=== PATIENT | male | born 1945 | race Two or more races ===

== ENCOUNTER → 2024-06-17 09:01 | Outpatient (REF) | payer OTHER, SELFPAY | LOC: RCS 09:01 | PROVIDERS: ATTENDING PHYSICIAN Nurse Practitioner Gerontology; FAMILY PHYSICIAN Family Medicine | DX: I49.3 Ventricular premature depolarization (principal); I10 Essential (primary) hypertension | CPT/HCPCS: 93306 ==

== ENCOUNTER 2024-10-10 15:48 | Emergency (ER) | payer OTHER, SELFPAY ==
[2024-10-10 15:50] VITALS: BP 152/103
[2024-10-10 17:40] VITALS: BMI 31.5
[2024-10-10 17:41] VITALS: BP 148/111
[2024-10-10] MEDS: LOPRESSOR 5 MG IV (17:53)
[2024-10-10 18:00] VITALS: BP 134/96
[2024-10-10 18:05] LABS: % Basophils 0.6 % (0-2); % Eosinophils 3.4 % (0-6); % Immature Granulocytes 0.5 % (0-0.5); % Lymphocytes 15.2 % (20.5-51.1); % Monocytes 9.5 % (1.7-9.3); % Neutrophils 70.8 % (42.2-75.2); Absolute Basophils 0.1 10^3/uL (0-0.2); Absolute Eosinophils 0.3 10^3/uL (0-0.7); Absolute Lymphocytes 1.3 10^3/uL (1.2-3.4); Absolute Monocytes 0.8 10^3/uL (0.1-0.6); Absolute Neutrophils 5.8 10^3/uL (1.4-6.5); Hematocrit 47.2 % (39.0-52.0); Hemoglobin 16.7 g/dL (13.0-18.0); Mean Corp Hgb Conc. 35.4 g/dL (33.0-37.0); Mean Corpuscular Hgb 33.7 pg (27.0-31.0); Mean Corpuscular Volume 95.4 fL (80.0-94.0); Mean Platelet Volume 10.1 fL (7.4-10.4); Nucleated Red Blood Cells % 0 % (-); Platelet Count 228 10^3/uL (130-400); Red Blood Cell Count 4.95 10^6/uL (4.70-6.10); Red Cell Dist. Width 12.8 % (11.5-14.5); White Blood Cell Count 8.2 10^3/uL (4.8-10.8)
[2024-10-10 18:25] LABS: ALT (SGPT) 42 U/L (0-50); AST (SGOT) 47 U/L (17-59); Albumin 4.6 g/dl (3.5-5.0); Alkaline Phosphatase 70 U/L (38-126); Blood Urea Nitrogen 28 mg/dl (9-20); Calcium 9.8 mg/dl (8.4-10.2); Carbon Dioxide 21 mmol/L (22-30); Chloride 107 mmol/L (98-107); Estimated Creatinine Clearance 55 ml/min; Glucose 109 mg/dl (70-99); Magnesium 2.1 mg/dl (1.6-2.3); Potassium 4.5 mmol/L (3.5-5.1); Sodium 141 mmol/L (135-145); Total Bilirubin 2.6 mg/dl (0.2-1.3); Total Protein 7.8 g/dl (6.3-8.2); eGFR 51.77
[2024-10-10 19:00] VITALS: BP 120/97
--- NOTE | 2024-10-10 19:26 | ED.GENMED ---
History of Present Illness
General
Chief Complaint: Heart Rate Problem
Time Seen by Provider: 10/10/24 17:08
History of Present Illness
History of Present Illness:
79-year-old male presents to the emergency department for evaluation of exertional shortness of breath and fatigue that has been ongoing for the past several days. He noted his Apple Watch recorded A-fib thus prompting him to come to the emergency
department. He has no prior history of A-fib. Denies any chest pain currently, no fevers or chills.
Review of Systems
Review of Systems
Allergies reviewed?: Yes
All Other Systems: ROS reviewed and negative except as documented in HPI and ROS
Phy Exam
Physical Exam
Physical Exam:
GEN: Well appearing, NAD, WDWN
HEENT: Oral mucosa moist, no scleral icterus
Cardiac: Slightly tachycardic and irregular, no murmur
Lung: No respiratory distress, no tachypnea, lungs clear to auscultation bilaterally
MSK: No gross deformity or injuries
Skin: Good color, no pallor or jaundice, no rashes
Neuro: AO x3, moves all extremities freely
Psych: Calm, cooperative
Course
Orders/Labs/Results
Orders:
Orders
10/10/24 15:49
Electrocardiogram (*1) Urgent
Reason for Study: Palpitations
EKG- Treatment ONCE
10/10/24 17:33
Metoprolol [Lopressor] 5 mg IV NOW STA
10/10/24 17:45
Complete Blood Count/With Diff Urgent
Comprehensive Metabolic Panel Urgent
Magnesium Urgent
10/10/24 18:24
Metoprolol [Lopressor] 5 mg IV NOW STA
10/10/24 19:25
Apixaban [Eliquis] 5 mg PO NOW STA
Metoprolol [Lopressor] 25 mg PO NOW STA
Abnormal Lab Results
11/15/24
17:45
MCV 95.4 H fL
(80.0-94.0)
MCH 33.7 H pg
(27.0-31.0)
Absolute Monos (auto) 0.8 H 10^3/uL
(0.1-0.6)
Lymphocytes % 15.2 L %
(20.5-51.1)
Monocytes % 9.5 H %
(1.7-9.3)
Carbon Dioxide 21 L mmol/L
(22-30)
BUN 28 H mg/dl
(9-20)
Creatinine 1.4 H mg/dL
(0.7-1.3)
Glucose 109 H mg/dl
(70-99)
Total Bilirubin 2.6 H mg/dl
(0.2-1.3)
10/10/24 17:45
10/10/24 17:45
Vital Signs
Initial and Last Documented VS:
Initial Vital Signs
Temp Pulse Resp BP Pulse Ox
98.5 F 69 16 152/103 97
10/10/24 15:50 10/10/24 15:50 10/10/24 15:50 10/10/24 15:50 10/10/24 15:50
Last Documented Vital Signs
Temp Pulse Resp BP Pulse Ox
98.5 F 92 14 120/97 97
10/10/24 15:50 10/10/24 19:39 10/10/24 19:30 10/10/24 19:39 10/10/24 15:50
MDM/Problems Addressed
MDM/Problems Addressed:
Patient is found to be in new onset A-fib. 1 dose of IV metoprolol provided adequate rate control. He is not a candidate for cardioversion due to unclear onset time. Has had prior outpatient labs showing normal thyroid function thus do not feel
any indication to recheck this today. Will start the patient on Eliquis and increase his home metoprolol, he has planned cardiology follow-up in October
*Critical Care Note
Total Time (30-74mins, 75-104mins- exclusive of procedures): Not Applicable
ED Attending Note
-
Portions of this chart may have been created with voice recognition software.� Occasional wrong word or��sound alike� substitutions may have occurred due to the inherent limitations of voice recognition software.
Discharge Plan
Departure
Patient Disposition: Home (Routine Discharge)
Date of Disposition: 10/10/24
Time of Disposition: 19:26
Patient with high blood pressure during this ER visit?: No
Discharge Problem:
Atrial fibrillation, new onset
Instructions: Atrial Fibrillation (DC), Taking oral medicines for blood clots
Prescriptions:
New
Eliquis 5 mg tablet
5 mg PO BID Qty: 60 0RF
metoprolol succinate 25 mg tablet extended release 24 hr
25 mg PO BID Qty: 60 0RF
Discontinued
metoprolol succinate 25 mg Capsule,Sprinkle,Er 24hr
12.5 mg PO QPM
No Action
multivitamin Tablet
1 tab PO DAILY
amlodipine 5 mg Tablet
5 mg PO HS
dicyclomine 20 mg Tablet
20 mg PO PRN PRN (Reason: IBS)
losartan 100 mg Tablet
100 mg PO QPM
finasteride 5 mg Tablet
5 mg PO QPM
hydrochlorothiazide 12.5 mg Tablet
12.5 mg PO DAILY
Nicotinamide 1 TABLEt tablet
1 tab PO DAILY
Red Wine Extract 85 MG
85 mg PO DAILY
ashwagandha extract 400 MG tablet
400 mg PO DAILY
creatine monohydrate 2,500 MG tablet
5,000 mg PO PRN PRN (Reason: post workout)
vitamin D3-vitamin K2
1 tab PO DAILY
Magnesium + Inosine
1 cap PO DAILY
Metamucil
2 cap PO DAILY
Referrals:
Krakowski,Andrea Jose, MD [Active] -
Sarah Beth Cabezas MD [Family Provider] -
Interventions
Interventions:
*Risk Screen - Suicide Last Done: 10/10/24 15:50
*General Assessment Last Done: 10/10/24 15:50
*Neglect/Abuse Screening Last Done: 10/10/24 17:40
ED- Fall Risk Assessment Last Done: 10/10/24 17:40
*ED COVID-19 Vaccine History Last Done: 10/10/24 15:50
*Nursing Disposition Last Done: 10/10/24 19:50
ED- Cardiac Assessment Last Done: 10/10/24 17:40
ED- Pulmonary Assessment Last Done: 10/10/24 17:40
Discharge Date and Time
Discharge Date/Time: 10/10/24 19:50
Print Language: CITIZ[place]
[2024-10-10] MEDS: LOPRESSOR 25 MG PO (19:39)
[2024-10-10] MEDS: ELIQUIS 5 MG PO (19:39)
== END 2024-10-10 19:50 | disposition home or self-care (01) ==
LOC: EMR 15:48
PROVIDERS: Physician Assistant; EMERGENCY PHYSICIAN Emergency Medicine; FAMILY PHYSICIAN Family Medicine
DX: I48.91 Unspecified atrial fibrillation (principal); Z79.01 Long term (current) use of anticoagulants
CPT/HCPCS: 99283; 80053; 83735; 85025; 93005

== ENCOUNTER 2024-12-11 14:58 | Inpatient (IN) | payer OTHER, SELFPAY ==
[2024-12-11] VITALS (10 sets, daily range): BP systolic 136–170; BP diastolic 71–93; BMI 30.1
--- NOTE | 2024-12-11 13:38 | W.PN.CARDCBS ---
Today's Communication / Plan
-
NSTEMI, transferred for [facility] today
trend troponin to peak
Impression / Plan
-
This is a summary, please see scanned H&P
Primary care physician: Sarah Beth Cabeazs MD
Primary nurse advisor: Andrea Shine MD
79 year old male history of HTN, HLD, PAF and Bladder CA. He presented to [facility] ED after awakening around 1 AM with anterior chest tightness with associated dyspnea and diaphoresis. He describes his chest discomfort as tightness, 'like it was muscles
pulling on the outside of my body'. He reports no precipitating factors, but describes deep breathing and chest massage as relieving factors. He denies radiating symptoms. He took 2 tums without relief and was given 3 sl nitro and ASA with relief
upon arrival to the ED. BP 166/108. EKG showed NSR with marked inferior ST depressions and lateral/inferior ST depressions. IV Heparin gtt was started. Repeat ECG showed NSR with inferior infarct. CXR showed hazy opacity in the L lung zone. Cr 1.47
Trp 20, 142, 303 with CPK 143. He remains pain free since receiving Nitroglycerin. Echo with NL EF and LAD WMA. He is transferred today for [facility].
Impression:
NSTEMI
HTN
Hyperlipidemia
PAF not on OAC (pt choice)
Bladder cancer
GERD
Plan:
Transferred today for [facility] for NSTEMI
Currently CP free, continue heparin drip until cath
ECG suggested inferior ST depression with subtle [address]-T wave reciprocal changes anteriorly
Echo with LAD WMA
trend troponin to peak, GV 20 ->> 142 ->> 303
Received ASA 325 mg x1 @ 02:10 today
Continue ASA 81 mg daily + Atorva 40
Continue home Metop Succinate + Amlodipine for now
[id number] =3, pt prefers not to be on OAC
continue to monitor on tele
12/11/24 ECHO -
1. Preserved left ventricular systolic function.
2. Left ventricular ejection fraction, by visual estimation, is 50 to 55%.
3. Mid and apical anterior septum, apical anterior segment, and apex are abnormal.
4. Indeterminate LV diastolic function.
5. Right atrial pressure of (3 mmHg), the estimated right ventricular systolic pressure is normal at (23.9 mmHg).
6. Normal left atrium by volume index (24.8 mL/m2) and normal right atrium by area (16.5 cm2).
7. No hemodynamically significant valvular abnormalities.
8. There is a fat pad vs. trivial pericardial effusion.
9. There are no prior studies for comparison.
Progress Note - Vacuum Kettle Cook
Subjective
Date of Service: December 11, 2024
denies cp, sob
Objective
Labs:
Laboratory Last Values
WBC 6.7 10^3/uL (4.5-11.0) 12/11/24 02:12
RBC 4.75 10^6/uL (4.20-5.40) 12/11/24 02:12
Hgb 15.6 gm/dL (13.5-16.5) 12/11/24 02:12
Hct 44.8 % (40.0-48.0) 12/11/24 02:12
MCV 94 fl (82-98) 12/11/24 02:12
RDW 13.0 % (11.0-15.0) 12/11/24 02:12
Plt Count 232 10^3/uL (150-400) 12/11/24 02:12
Neut % (Auto) 53 % (40-78) 12/11/24 02:12
Lymph % (Auto) 31 % (21-49) 12/11/24 02:12
[place] % (Auto) 11 % (0-10) H 12/11/24 02:12
Eos % (Auto) 4 % (0-4) 12/11/24 02:12
Baso % (Auto) 1 % (0-1) 12/11/24 02:12
Neut # (Auto) 3.6 10^3/uL (2.2-8.0) 12/11/24 02:12
Lymph # (Auto) 2.1 10^3/uL (1.0-4.0) 12/11/24 02:12
[place] # (Auto) 0.8 10^3/uL (0.0-1.0) 12/11/24 02:12
Eos # (Auto) 0.3 10^3/uL (0.0-0.4) 12/11/24 02:12
Baso # (Auto) 0.0 10^3/uL (0.0-0.1) 12/11/24 02:12
PT 13.2 SECONDS (11.5-14.4) 12/11/24 02:12
INR 0.99 INR 12/11/24 02:12
APTT 55 SECONDS (23-37) H 12/11/24 09:28
Sodium 139 mmol/L (136-145) 12/11/24 02:12
Potassium 4.0 mmol/L (3.5-5.1) 12/11/24 02:12
Chloride 103 mmol/L (98-107) 12/11/24 02:12
Carbon Dioxide 22.1 mmol/L (22.0-29.0) 12/11/24 02:12
Anion Gap 14 (7-16) 12/11/24 02:12
BUN 23 mg/dL (8-23) 12/11/24 02:12
Creatinine 1.47 mg/dL (0.70-1.20) H 12/11/24 02:12
GFR Calculation 49 (Over 90) L 12/11/24 02:12
BUN/Creatinine Ratio 15.3 (7.0-25.0) 12/11/24 02:12
POC Glucometer 153 mg/dL (70 - 110) H 12/11/24 02:05
Fasting Glucose 146 mg/dL (70-110) H 12/11/24 02:12
Calcium 9.3 mg/dL (8.8-10.2) 12/11/24 02:12
Total Bilirubin 1.3 mg/dL (0.1-1.2) H 12/11/24 02:12
AST 32 U/L (0-40) 12/11/24 02:12
ALT 27 U/L (0-41) 12/11/24 02:12
Alkaline Phosphatase 93 U/L (35-160) 12/11/24 02:12
Total Creatine Kinase 130 U/L (20-200) 12/11/24 09:28
CK-MB (CK-2) 5.1 ng/mL (0.0-5.0) H 12/11/24 09:28
CK-MB (CK-2) Rel Index 3.9 ng/100IU (0-2.8) H 12/11/24 09:28
Troponin T 5th Gen ng/L 303 ng/L (0-22) H* 12/11/24 09:28
Total Protein 7.6 g/dL (6.5-8.3) 12/11/24 02:12
Albumin 4.2 g/dL (3.5-5.2) 12/11/24 02:12
Globulin 3.4 g/dL (2.3-3.5) 12/11/24 02:12
Albumin/Globulin Ratio 1.2 (1.1-1.7) 12/11/24 02:12
Influenza A (PCR) Negative (NEGATIVE) 12/11/24 06:00
Influenza B (RT-PCR) Negative (NEGATIVE) 12/11/24 06:00
POC RSV (ABBE) Negative (NEGATIVE) 12/11/24 06:00
SARS-CoV-2 (PCR) Negative (NEGATIVE) 12/11/24 06:00
Physical Exam
Physical Exam
NAD< AOX3
S1, S2, RRR
CTAB< non labored, no wheeze
SNTND bsx4
No LE edema
[2024-12-11 17:08] LABS: Troponin I 0.975 ng/ml
--- NOTE | 2024-12-11 17:21 | PTCARENOTE ---
Received pt from wood preserving plant laborer w/ right radial band intact. VSS. Pt denies chest discomfort. MD in pt's room at this time.
--- NOTE | 2024-12-11 17:26 | ITS.CL.PN ---
Residential Nurse - Procedure Note
Procedure
Procedure Note:
CARDIAC CATHETERIZATION REPORT
Date of Procedure: 12/11/2024
Referring: Dr. Apolinar Romo MD
Indication: NSTEMI
PROCEDURE(S)
1. left heart catheterization
2. coronary angiography
3. extremity angiography, unilateral, radial artery
4. ultrasound guided vascular access, radial artery
5. moderate sedation, 35 minutes
ACCESS: 6F right radial artery (closure: radial band)
CATHETERS
1. 6F JR4
2. 6F JL3.5
MODERATE SEDATION: 35 minutes of moderate sedation was utilized. An independent emergency medical service manager was present to assist with and help manage the patient's level of consciousness and physiologic status.
ULTRASOUND GUIDED VASCULAR ACCESS (right radial artery): Ultrasound was utilized for vascular access. The vessel was visualized under ultrasound and noted to be patent. An image of the vessel was stored permanently in the patient's medical record.
Under direct ultrasound guidance, vascular access was obtained using a modified Seldinger technique and a 6 [place] sheath was placed.
HEMODYNAMIC DATA
LV 141/10 (EDP 15) mmHg
AO 143/79 (mean 105) mmHg
CORONARY ANGIOGRAPHY
Dominance: right
LM: large vessel with mild disease
LAD: Large vessel giving rise to a moderate caliber D1 and large caliber D2. There is a severe 90% stenosis spanning the takeoff of D2. There is also severe disease at the D1 ostium and the second focal stenosis in the proximal D1.
LCx: Moderate caliber vessel giving rise to a small OM1 large branching OM2. There is mild nonobstructive disease.
RCA: Large vessel giving rise to a large RPDA and very large right posterolateral branch. There is mild nonobstructive disease.
RADIATION: dose 295 mGy; DAP 25.2 Gy*cm2; fluoroscopy time 4.4 min
CONCLUSIONS
1. Single-vessel obstructive coronary artery disease with high-grade bifurcation stenosis of the LAD and large diagonal branch.
2. Mildly elevated LV filling pressure and no aortic stenosis.
RECOMMENDATIONS
1. expectant management after cardiac catheterization via right radial approach
2. The patient was chest pain free at the time of cath and was taken off the table to discuss revascularization options. Given that this is relatively low Syntax disease in a nondiabetic patient with normal EF and no significant valvular disease, I
believe percutaneous revascularization is appropriate. This was discussed with the patient and he is comfortable proceeding with PCI tomorrow.
3. Please keep NPO after 6 AM (okay for a small early breakfast).
4. Please load patient with 180 mg ticagrelor tonight and continue 90 mg ticagrelor BID afterwards.
5. Continue
6. High intensity statin
Copy to: Dr. Andrea Shine MD (grain roaster); Dr. Apolinar Romo MD (transferring grain roaster), Dr. Sarah Beth Cabezas MD (PCP)
Signed: Emery Gauthier MD, PhD
[2024-12-11] MEDS: NSS 1000 IV (18:06)
[2024-12-11] MEDS: LIPITOR 40 MG PO (18:17)
[2024-12-11 18:28] LABS: APTT 163.3 Sec (23.4-35.0)
[2024-12-11] MEDS: HEPARIN 25000 UNITS/250 ML IV (19:58)
[2024-12-11] MEDS: TOPROL XL 25 MG PO (20:03)
[2024-12-11] MEDS: BRILINTA 180 MG PO (20:03)
[2024-12-12] VITALS (15 sets, daily range): BP systolic 136–168; BP diastolic 76–90
[2024-12-12] LABS: Troponin I 0.599 ng/ml
[2024-12-12 02:54] LABS: Hematocrit 39.6 % (39.0-52.0); Hemoglobin 14.2 g/dL (13.0-18.0); Mean Corp Hgb Conc. 35.9 g/dL (33.0-37.0); Mean Corpuscular Hgb 33.3 pg (27.0-31.0); Mean Corpuscular Volume 92.7 fL (80.0-94.0); Mean Platelet Volume 10.2 fL (7.4-10.4); Platelet Count 194 10^3/uL (130-400); Red Blood Cell Count 4.27 10^6/uL (4.70-6.10); White Blood Cell Count 6.8 10^3/uL (4.8-10.8)
[2024-12-12 03:07] LABS: APTT 43.6 Sec (23.4-35.0); Blood Urea Nitrogen 21 mg/dl (9-20); Calcium 8.9 mg/dl (8.4-10.2); Carbon Dioxide 19 mmol/L (22-30); Chloride 107 mmol/L (98-107); Estimated Creatinine Clearance 75 ml/min; Glucose 103 mg/dl (70-99); HDL Cholesterol 74 mg/dl; LDL Cholesterol, Calculated 66 mg/dl; Potassium 3.9 mmol/L (3.5-5.1); Sodium 136 mmol/L (135-145); Total Cholesterol 164 mg/dl (50-199); Triglyceride 121 mg/dl (10-149); Very Low Density Lipoprotein 24 mg/dl (0-30); eGFR > 60.00
--- NOTE | 2024-12-12 04:05 | PTCARENOTE ---
patient rested comfortably overnight. denies any cp/sob. SB on tele 50s. bp stable. heparin gtt infusing per protocol. R radial site intact/+pulse. ambulating in the room independently. NPO for cardiac cath today. educated patient to inform RN with
any changes. call elias within reach. makes needs known.
[2024-12-12] MEDS: PROTONIX 40 MG PO (07:57)
[2024-12-12] MEDS: TOPROL XL 25 MG PO ×2 (07:57→19:38)
[2024-12-12] MEDS: LOW STRENGTH ASPIRIN 81 MG PO (07:57)
[2024-12-12] MEDS: COZAAR 100 MG PO (07:57)
[2024-12-12] MEDS: NORVASC 5 MG PO (07:57)
[2024-12-12] MEDS: BRILINTA 90 MG PO ×2 (07:57→19:38)
--- NOTE | 2024-12-12 08:57 | PTCARENOTE ---
Patient comfortable at rest, mildly anxious about today, denies chest pain, SB HR in the 50's, last BP 159/88. Ate a light breakfast, now NPO.
[2024-12-12 10:12] LABS: APTT 43.4 Sec (23.4-35.0)
--- NOTE | 2024-12-12 12:04 | CM ---
Chart reviewed. Patient is independent of ADLS, lives with his in a 2 STH, 0 AMINAH, 0 DME. Plan is for the patient to return home. CM to follow
--- NOTE | 2024-12-12 12:06 | CM ---
Pricing on Brilinta through the patient's prescription plan, ID# [id number], ph# [phone], is $21 for a 30 day supply. It is not available at the patient's [facility] and won't be in until Sunday. It is available at the [facility]
in [place], patient is agreeable to go there. Script sent to [facility]. Free 30 day coupon placed in the patient's red discharge folder.
--- NOTE | 2024-12-12 13:19 | PTCARENOTE ---
Patient sent to the electroplating laborer, report given
[2024-12-12 14:10] LABS: ACT-LR - POC 384 Seconds (116-155)
[2024-12-12 14:33] LABS: ACT-LR - POC 271 Seconds (116-155)
[2024-12-12 15:22] LABS: ACT-LR - POC 292 Seconds (116-155)
[2024-12-12 15:49] LABS: ACT-LR - POC > 397 Seconds (116-155)
--- NOTE | 2024-12-12 16:30 | PTCARENOTE ---
Patient received from the dental laboratory technician, awake and alert. Right radial band in place, some bruising above the band, non-tender, POX 93%. Voided in the bathroom, SR, BP improved 161/83
[2024-12-12] MEDS: NSS 1000 IV (16:53)
[2024-12-12] MEDS: LIPITOR 40 MG PO (17:41)
[2024-12-12] MEDS: PROSCAR 5 MG PO (17:41)
--- NOTE | 2024-12-12 18:26 | ITS.CL.PN ---
Spanish Translator - Procedure Note
Procedure
Procedure Note:
CARDIAC CATHETERIZATION REPORT
Date of Procedure: 12/12/2024
Referring: Dr. Apolinar Romo MD
Indication: NSTEMI
PROCEDURE(S)
1. left heart catheterization
2. PCI with LATASHA to LAD artery
3. PCI with LATASHA to diagonal artery
4. IVUS of LAD
5. IVUS of diagonal artery
6. extremity angio, unilateral
ACCESS: 7F right radial artery (closure: radial band)
CATHETER: 7F XB3.5 guide catheter
MODERATE SEDATION: 135 minutes of moderate sedation was utilized. An independent medical anthropology director was present to assist with and help manage the patient's level of consciousness and physiologic status.
ULTRASOUND GUIDED VASCULAR ACCESS (right radial artery): Ultrasound was utilized for vascular access. The vessel was visualized under ultrasound and noted to be patent. An image of the vessel was stored permanently in the patient's medical record.
Under direct ultrasound guidance, vascular access was obtained using a modified Seldinger technique and a 7 [place] sheath was placed.
HEMODYNAMIC DATA
LV 168/5 (EDP 13) mmHg
AO 176/72 (mean 94) mmHg
IVUS-guided PCI of the LAD-diagonal bifurcation with DK crush technique
Heparin was administered to achieve ACT greater than 300. A 7 [place] XB 3.5 guide catheter was engaged in the left main. [place] coronary wires were placed in the distal LAD and diagonal branch. Initial lesion preparation was performed with a
2.0x12 mm semicompliant balloon in both branches with full expansion. IVUS was then performed in both branches demonstrating mild calcification, a 2.75 mm reference diameter in the diagonal, 3.5 mm distal reference diameter in the LAD, and 3.75 mm
proximal reference diameter in the LAD. A 3.5 x 12 mm NC balloon was delivered distal to the bifurcation and a 2.75 x 18 mm [place] frontier drug-eluting stent was carefully positioned at the ostial diagonal with minimal protrusion into the LAD. The
diagonal stent was deployed at 12 MARIA ESTHER after which the stent balloon was pulled back and reinflated to 18 MARIA ESTHER to flare the ostium. The stent balloon was then removed after which the 3.5 NC was pulled back and used to crush the sidebranch stent. The
jailed diagonal wire was pulled back and rewired through a non-distal stent strut. Kissing balloon inflation was performed with sequential inflation of a 2.75x12 mm NC in the diagonal followed by 3.5x12 mm NC in the LAD followed by simultaneous
inflation in both vessels to 12 MARIA ESTHER. LAD stenting was then performed with a 3.5 x 22 mm [place] frontier drug-eluting stent delivered at 14 MARIA ESTHER. The jailed diagonal wire was removed and the LAD wire pulled back and rewired into the diagonal branch
through a mid to distal stent strut. The diagonal wire was then advanced down the LAD. Second kissing balloon inflation was then performed in the same manner as before. POT was performed with a 3.75 x 6 mm NC balloon taken to 18 maria esther. IVUS of
both branches was performed demonstrating excellent stent apposition and expansion, no distal or proximal edge dissection, and full coverage of the chantel-kavita. Final angiography demonstrated a outstanding result. The guide was removed and a
pigtail catheter used to measure LVEDP to inform postprocedural fluid resuscitation.
RADIATION: dose 1303 mGy; DAP 94.9 Gy*cm2; fluoroscopy time 31.4 min
CONCLUSIONS
1. successful IVUS-guided DK crush PCI of the LAD diagonal bifurcation with placement of 2.75x18 mm and 3.5x22 mm drug-eluting stents. Proximal LAD POT with a 3.75 mm NC balloon.
2. normal LV filling pressure and no aortic stenosis
RECOMMENDATIONS
1. expectant management after cardiac catheterization via right radial approach
2. DAPT with aspirin and ticagrelor for 1 year
3. aggressive secondary prevention of coronary artery disease
Copy to: Dr. Andrea Shine MD (street sweeper); Dr. Apolinar Romo MD (transferring street sweeper), Dr. Sarah Beth Cabezas MD (PCP)
Signed: Emery Gauthier MD, PhD
--- NOTE | 2024-12-12 21:29 | PTCARENOTE ---
Patient received at change of shift resting comfortably in the bed with spouse at bedside. TR band on, oxygen saturation on right hand 96-98%, patient on room air. Patient denies chest pain, numbness/tingling to extremities, and/or feeling
lightheaded/dizzy. TR band removed as documented without complication. Right radial cath site with gauze and tegaderm C/D/I. Right radial pulse +2 palpation. Capillary refill <3 seconds. Post cath IVF infusing per order. Patient normal sinus rhythm
on the monitor. Call elias within reach. Plan of care discussed with patient. Care ongoing.
[2024-12-13 03:13] VITALS: BP 137/83
[2024-12-13 03:49] LABS: Hematocrit 38.5 % (39.0-52.0); Hemoglobin 13.8 g/dL (13.0-18.0); Mean Corp Hgb Conc. 35.8 g/dL (33.0-37.0); Mean Corpuscular Hgb 33.3 pg (27.0-31.0); Mean Corpuscular Volume 92.8 fL (80.0-94.0); Mean Platelet Volume 10.1 fL (7.4-10.4); Platelet Count 192 10^3/uL (130-400); Red Blood Cell Count 4.15 10^6/uL (4.70-6.10); Red Cell Dist. Width 12.9 % (11.5-14.5); White Blood Cell Count 7.6 10^3/uL (4.8-10.8)
[2024-12-13 04:11] LABS: Blood Urea Nitrogen 14 mg/dl (9-20); Calcium 8.8 mg/dl (8.4-10.2); Carbon Dioxide 20 mmol/L (22-30); Chloride 107 mmol/L (98-107); Estimated Creatinine Clearance 75 ml/min; Glucose 111 mg/dl (70-99); Potassium 4.1 mmol/L (3.5-5.1); Sodium 135 mmol/L (135-145); eGFR > 60.00
[2024-12-13 07:22] VITALS: BP 148/89
[2024-12-13] MEDS: NORVASC 5 MG PO (07:22)
[2024-12-13] MEDS: LOW STRENGTH ASPIRIN 81 MG PO (07:22)
[2024-12-13] MEDS: BRILINTA 90 MG PO (07:22)
[2024-12-13] MEDS: ORETIC 12.5 MG PO (07:22)
[2024-12-13] MEDS: PROTONIX 40 MG PO (07:22)
[2024-12-13] MEDS: TOPROL XL 25 MG PO (07:23)
[2024-12-13] MEDS: COZAAR 100 MG PO (07:23)
--- NOTE | 2024-12-13 08:41 | W.PN.UPDATE ---
Addendum entered and electronically signed by Jaquan Hernandez MD 12/13/24 10:02:
I saw and examined the patient.
The INDIVIDUAL PENSION ADVISER's note was reviewed and I agree with the note.
Patient feels well without complaints hemodynamically stable. Telemetry stable. Reviewed issues related to post PCI care including importance of dual antiplatelet therapy. Which includes Brilinta and aspirin.
-Plan for discharge today
Follow-up in our office as scheduled.
Original Note:
Update Note
Progress Note Update
Mr. Bass is a 79 yo male with NSTEMI transferred from [facility]. He is s/p successful IVUS-guided DK crush PCI of the LAD diagonal bifurcation with placement of 2.75x18 mm and 3.5x22 mm drug-eluting stents. Proximal LAD POT with a 3.75
mm NC balloon. His right radial site is well healed, no hematoma or bruit. He denies any anginal symptoms and is stable for discharge home today with follow up as arranged. Reviewed discharge medication and instructions, including the importance
of uninterrupted DAPT and he verbalized understanding. All questions were answered.
--- NOTE | 2024-12-13 08:45 | W.DS.TRANS ---
DC Summary - Welding Engineer
-
Discharge Instructions:
Discharge Diagnosis/Procedures NSTEMI, Angioplasty with stent to Diagonal and
left anterior descending arteries x 2
Diet Low Cholesterol
Driving Restrictions No driving for 24 hours
Other Services Cardiac Rehab
Instructions:
Stand-Alone Forms: DC Instructions- Cath/EP Lab
Changes to Home Medications: Yes
Discharge Medications:
DC Medications w/original date entered in [employer]
amlodipine 5 mg tablet 5 mg PO HS Blood pressure 12/29/22
ashwagandha extract 400 mg PO DAILY Supplement 12/29/22
creatine monohydrate 5,000 mg PO DAILY 12/29/22
dicyclomine 20 mg tablet 20 mg PO PRN PRN IBS 12/29/22
finasteride 5 mg tablet 5 mg PO QPM Urinary issue 12/29/22
hydrochlorothiazide 12.5 mg tablet 12.5 mg PO DAILY Blood pressure 12/29/22
losartan 100 mg tablet 100 mg PO QPM Blood pressure 12/29/22
multivitamin 1 tab PO DAILY Supplement 12/29/22
vitamin D3-vitamin K2 1 tab PO DAILY Supplement 12/29/22
Magnesium + Inosine 1 cap PO DAILY Supplement 07/02/23
Metamucil 2 cap PO DAILY Supplement 07/02/23
aspirin 81 mg chewable tablet 81 mg PO DAILY #1 tab 12/12/24
atorvastatin 40 mg tablet 40 mg PO QPM #90 tabs 12/12/24
metoprolol succinate 25 mg tablet,extended release 24 hr 25 mg PO BID #60 tabs 12/12/24
ticagrelor 90 mg tablet (Brilinta) 90 mg PO BID #60 tabs 12/12/24
Home Medication Changes
ASA, Brilinta, Lipitor are new.
Amlodipine was reduced to 5mg daily.
Pending Results: No
--- NOTE | 2024-12-13 10:05 | W.DS.TRANS ---
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
-
Discharge Instructions:
Discharge Diagnosis/Procedures NSTEMI, Angioplasty with stent to Diagonal and
left anterior descending arteries x 2
Diet Low Cholesterol
Driving Restrictions No driving for 24 hours
Other Services Cardiac Rehab
Instructions:
Stand-Alone Forms: DC Instructions- Cath/EP Lab
Changes to Home Medications: Yes
Discharge Medications:
DC Medications w/original date entered in [employer]
amlodipine 5 mg tablet 5 mg PO HS Blood pressure 12/29/22
creatine monohydrate 5,000 mg PO DAILY 12/29/22
dicyclomine 20 mg tablet 20 mg PO PRN PRN IBS 12/29/22
finasteride 5 mg tablet 5 mg PO QPM Urinary issue 12/29/22
hydrochlorothiazide 12.5 mg tablet 12.5 mg PO DAILY Blood pressure 12/29/22
losartan 100 mg tablet 100 mg PO QPM Blood pressure 12/29/22
multivitamin 1 tab PO DAILY Supplement 12/29/22
vitamin D3-vitamin K2 1 tab PO DAILY Supplement 12/29/22
Magnesium + Inosine 1 cap PO DAILY Supplement 07/02/23
Metamucil 2 cap PO DAILY Supplement 07/02/23
aspirin 81 mg chewable tablet 81 mg PO DAILY #1 tab 12/12/24
atorvastatin 40 mg tablet 40 mg PO QPM #90 tabs 12/12/24
metoprolol succinate 25 mg tablet,extended release 24 hr 25 mg PO BID #60 tabs 12/12/24
ticagrelor 90 mg tablet (Brilinta) 90 mg PO BID #60 tabs 12/12/24
Home Medication Changes
stop ashwagandha extract 400 mg PO daily.
Pending Results: No
== END 2024-12-13 10:11 | disposition home or self-care (01) | DRG 322 ==
LOC: IVU 14:58
PROVIDERS: Nurse Practitioner Adult Health; ADMITTING PHYSICIAN Student in an Organized Health Care Education/Training Program; FAMILY PHYSICIAN Family Medicine
PROC: 4A023N7 Measurement of Cardiac Sampling and Pressure, Left Heart, Percutaneous Approach (ICD-10-PCS; 2024-12-11)
PROC: B2111ZZ Fluoroscopy of Multiple Coronary Arteries using Low Osmolar Contrast (ICD-10-PCS; 2024-12-11)
PROC: B31H1ZZ Fluoroscopy of Right Upper Extremity Arteries using Low Osmolar Contrast (ICD-10-PCS; 2024-12-11)
PROC: B241ZZ3 Ultrasonography of Multiple Coronary Arteries, Intravascular (ICD-10-PCS; 2024-12-12)
PROC: 027135Z Dilation of Coronary Artery, Two Arteries with Two Drug-eluting Intraluminal Devices, Percutaneous Approach (ICD-10-PCS; 2024-12-12)
DX: I21.4 Non-ST elevation (NSTEMI) myocardial infarction (principal); I25.10 Atherosclerotic heart disease of native coronary artery without angina pectoris; I10 Essential (primary) hypertension; E78.5 Hyperlipidemia, unspecified; I48.0 Paroxysmal atrial fibrillation; K21.9 Gastro-esophageal reflux disease without esophagitis; Z85.51 Personal history of malignant neoplasm of bladder; Z90.79 Acquired absence of other genital organ(s)
CPT/HCPCS: 76937; 80048; 80061; 84484; 85027; 85347; 85730; 92978; 93005; 93458; 99152; 99153; C1725; C1753; C1769; C1874; C1887; C1894; C9600; C9601; Q9967

== ENCOUNTER → 2025-01-28 08:45 | Outpatient (REF) | payer OTHER, SELFPAY | LOC: DHSLP 08:45 | PROVIDERS: ATTENDING PHYSICIAN Internal Medicine; FAMILY PHYSICIAN Family Medicine | DX: G47.33 Obstructive sleep apnea (adult) (pediatric) (principal) | CPT/HCPCS: 95800 ==